=== PATIENT | male | born 1980 | race African-American/Black ===

== ENCOUNTER → 2023-10-10 09:39 | Outpatient (REF) | payer OTHER, SELFPAY ==
[2023-10-10 15:35] LABS: Mumps Virus IgG Positive; Varicella Zoster IgG (VZV) Negative
[2023-10-10 18:57] LABS: Hepatitis B Surface Antibody Positive
[2023-10-10 19:39] LABS: Rubella Positive
[2023-10-11 17:19] LABS: Rubeola (Measles) IgG Positive
[2023-10-12 22:00] LABS: Quantiferon Mitogen minus NIL 9.05 IU/mL; Quantiferon NIL 0.01 IU/mL; Quantiferon Plus TB1 minus NIL 0.21 IU/mL (0.00-0.34); Quantiferon Plus TB2 minus NIL 0.14 IU/mL (0.00-0.34); Quantiferon TB Gold Plus Negative (Negative)
== END ==
LOC: REG 09:39
PROVIDERS: ATTENDING PHYSICIAN Nurse Practitioner Family
DX: Z23 Encounter for immunization (principal)
CPT/HCPCS: 36415; 86480; 86706; 86735; 86762; 86765; 86787